=== PATIENT | male | born 1935 | race Caucasian/White ===

== ENCOUNTER 2016-09-23 02:54 | Inpatient (IN) | payer MEDICARE ==
[~2016-09-23] VITALS: Ht 177.8 cm; Wt 89.2 kg
[2016-09-23] VITALS (8 sets, daily range): BP systolic 152–194; BP diastolic 71–91
[~2016-09-23 02:54] MED LIST: AMLO5TAB4 PO; ASPI-515 PO; ATOR10TA PO; CAND4TAB PO; CARV12.52 PO; CHLO25TA PO; CLON-275 PO; LABE100T26 PO; SITA1TAB PO; TERA5CAP3 PO; TICA90TA PO
[2016-09-23] MEDS ORDERED: LABETALOL 5MG/ML, 20ML ONE (03:34)
[2016-09-23 03:57] LABS: HEMOGLOBIN 13.4 g/dL (13.7-18.0)
[2016-09-23] MEDS ORDERED: LABETALOL 5MG/ML, 20ML IVPush ONE (04:00)
[2016-09-23 04:14] LABS: BLOOD UREA NITROGEN 25 mg/dL (7-18)
[2016-09-23 04:19] LABS: ASPARTATE AMINO TRANSFERASE 22 U/L (15-37)
[2016-09-23 04:22] LABS: IS PT STATUS REG ER OR PRE ER? YES
[2016-09-23] MEDS ORDERED: ASPIRIN 81 MG TABLET CHEW ONE (04:29)
[2016-09-23] MEDS ORDERED: ASPIRIN 81 MG TABLET CHEW PO ONE (04:30)
[2016-09-23] MEDS: SODIUM CHLORIDE 0.9% 1,000 ML IV SCH ×2 (05:10→23:36)
[2016-09-23] MEDS ORDERED: ONDANSETRON 2MG/ML, 2ML IVP PRN (05:30)
[2016-09-23] MEDS ORDERED: POLYETHYLENE GLYCOL 17 GM PACKET PO PRN (05:30)
[2016-09-23] MEDS ORDERED: NITROGLYCERIN 0.4 MG BOTTLE (25 TABS) SL PRN (05:30)
[2016-09-23] MEDS ORDERED: LABETALOL 5MG/ML, 20ML IV PRN (05:30)
[2016-09-23] MEDS ORDERED: ACETAMINOPHEN 325 MG TABLET PO PRN (05:30)
[2016-09-23] MEDS ORDERED: DOCUSATE 100 MG CAPSULE PO PRN (05:30)
[2016-09-23] MEDS ORDERED: BISACODYL 10 MG SUPP PR PRN (05:30)
[2016-09-23] MEDS ORDERED: MORPHINE SULFATE 4 MG/ML, 1ML IVPush PRN (05:30)
[2016-09-23] MEDS ORDERED: ENOXAPARIN 80 MG/0.8 ML SQ SCH (05:30)
[2016-09-23] MEDS: INSULIN REGULAR 100 UNITS/ML, 3ML VIAL SQ-INSULIN SCH ×4 (07:00→21:00)
[2016-09-23] MEDS: ENALAPRILAT 1.25 MG/ML, 2ML IVPush PRN ×2 (07:06→12:42)
[2016-09-23] MEDS ORDERED: LABETALOL 100 MG TABLET PO SCH (08:00)
[2016-09-23] MEDS: ASPIRIN 81 MG TABLET EC PO SCH (08:49)
[2016-09-23] MEDS: AMLODIPINE 5 MG TABLET PO SCH (08:49)
[2016-09-23 10:46] LABS: IS PT STATUS REG ER OR PRE ER? NO
[2016-09-23] MEDS ORDERED: SODIUM CHLORIDE 0.9% 1,000 ML IV ONE (11:51)
[2016-09-23] MEDS ORDERED: FENTANYL PF 100 MCG/2ML ONE ×2 (13:23→15:04)
[2016-09-23] MEDS ORDERED: VERAPAMIL 2.5 MG/ML, 2ML ONE (13:23)
[2016-09-23] MEDS ORDERED: MIDAZOLAM 1 MG/ML, 5ML ONE ×2 (13:23→14:39)
[2016-09-23] MEDS ORDERED: BIVALIRUDIN 250 MG ONE (13:24)
[2016-09-23] MEDS ORDERED: TICAGRELOR 90 MG TABLET ONE (13:24)
[2016-09-23] MEDS ORDERED: LIDOCAINE 2%, 20ML ONE (13:24)
[2016-09-23] MEDS ORDERED: HEPARIN 1,000 UNITS/ML, 10ML ONE (13:24)
[2016-09-23] MEDS: SODIUM CHLORIDE 0.45% 1,000 ML IV SCH ×3 (16:35→23:36)
[2016-09-23] MEDS: LABETALOL 100 MG TABLET PO SCH (17:48)
[2016-09-23] MEDS: hydrALAzine 20 MG/ML, 1ML IV PRN (17:49)
[2016-09-23 18:43] LABS: IS PT STATUS REG ER OR PRE ER? NO
[2016-09-23] MEDS: ENOXAPARIN 100 MG/ML SQ SCH (21:00)
[2016-09-23] MEDS: ATORVASTATIN 40 MG TABLET PO SCH (22:35)
[2016-09-24 01:39] VITALS: BP 145/85
[2016-09-24 05:58] LABS: HEMOGLOBIN 12.6 g/dL (13.7-18.0)
[2016-09-24 06:13] LABS: BLOOD UREA NITROGEN 15 mg/dL (7-18)
[2016-09-24 06:56] VITALS: BP 188/77
[2016-09-24] MEDS: INSULIN REGULAR 100 UNITS/ML, 3ML VIAL SQ-INSULIN SCH ×4 (07:00→20:34)
[2016-09-24] MEDS: hydrALAzine 20 MG/ML, 1ML IV PRN (08:07)
[2016-09-24] MEDS: LABETALOL 100 MG TABLET PO SCH ×2 (08:10→17:55)
[2016-09-24] MEDS: ASPIRIN 81 MG TABLET EC PO SCH (08:10)
[2016-09-24] MEDS: AMLODIPINE 5 MG TABLET PO SCH (08:11)
[2016-09-24] MEDS: ENOXAPARIN 100 MG/ML SQ SCH ×2 (08:13→20:35)
[2016-09-24] MEDS ORDERED: CLOPIDOGREL 75 MG TABLET PO SCH (09:00)
[2016-09-24 09:11] VITALS: BP 124/72
[2016-09-24] MEDS: SODIUM CHLORIDE 0.9% 1,000 ML IV SCH (12:50)
[2016-09-24] MEDS: TICAGRELOR 90 MG TABLET PO SCH ×2 (13:15→20:34)
[2016-09-24 13:45] VITALS: BP 141/70
[2016-09-24] MEDS: ATORVASTATIN 40 MG TABLET PO SCH (20:34)
[2016-09-24 20:48] VITALS: BP 175/87
[2016-09-25 01:55] VITALS: BP 161/78
[2016-09-25 05:29] LABS: HEMOGLOBIN 12.6 g/dL (13.7-18.0)
[2016-09-25 06:55] VITALS: BP 185/92
[2016-09-25] MEDS: ASPIRIN 81 MG TABLET EC PO SCH (08:56)
[2016-09-25] MEDS: TICAGRELOR 90 MG TABLET PO SCH ×2 (08:56→23:34)
[2016-09-25] MEDS: AMLODIPINE 5 MG TABLET PO SCH (08:56)
[2016-09-25] MEDS: ENOXAPARIN 100 MG/ML SQ SCH ×2 (08:56→20:57)
[2016-09-25] MEDS: LABETALOL 100 MG TABLET PO SCH ×3 (08:56→23:34)
[2016-09-25] MEDS: INSULIN REGULAR 100 UNITS/ML, 3ML VIAL SQ-INSULIN SCH ×4 (08:56→21:25)
[2016-09-25 16:52] VITALS: BP 188/80
[2016-09-25] MEDS: ENALAPRILAT 1.25 MG/ML, 2ML IVPush PRN (17:37)
[2016-09-25 19:23] VITALS: BP 136/73
[2016-09-25] MEDS: ATORVASTATIN 40 MG TABLET PO SCH (21:00)
[2016-09-26 01:32] VITALS: BP 154/76
[2016-09-26 06:45] VITALS: BP 184/89
[2016-09-26] MEDS: TICAGRELOR 90 MG TABLET PO SCH ×2 (07:59→20:14)
[2016-09-26] MEDS: LABETALOL 100 MG TABLET PO SCH ×2 (07:59→17:00)
[2016-09-26] MEDS: ASPIRIN 81 MG TABLET EC PO SCH (07:59)
[2016-09-26] MEDS: AMLODIPINE 5 MG TABLET PO SCH (07:59)
[2016-09-26] MEDS: ENOXAPARIN 100 MG/ML SQ SCH (08:00)
[2016-09-26] MEDS: INSULIN REGULAR 100 UNITS/ML, 3ML VIAL SQ-INSULIN SCH ×4 (08:12→20:20)
[2016-09-26 09:45] VITALS: BP 113/70
[2016-09-26 14:18] VITALS: BP 132/69
[2016-09-26] MEDS ORDERED: ENOXAPARIN 80 MG/0.8 ML SQ SCH (20:00)
[2016-09-26 20:10] VITALS: BP 154/71
[2016-09-26] MEDS: ATORVASTATIN 40 MG TABLET PO SCH (20:14)
[2016-09-27 01:24] VITALS: BP 163/78
[2016-09-27] MEDS: LABETALOL 100 MG TABLET PO SCH ×2 (01:29→07:46)
[2016-09-27 05:18] VITALS: BP 138/84
[2016-09-27] MEDS: INSULIN REGULAR 100 UNITS/ML, 3ML VIAL SQ-INSULIN SCH ×2 (07:00→11:00)
[2016-09-27 07:39] VITALS: BP 131/83
[2016-09-27] MEDS: TICAGRELOR 90 MG TABLET PO SCH (07:46)
[2016-09-27] MEDS: ASPIRIN 81 MG TABLET EC PO SCH (07:46)
[2016-09-27] MEDS: AMLODIPINE 5 MG TABLET PO SCH (07:47)
[2016-09-27] MEDS ORDERED: APIXABAN 5 MG TABLET PO SCH (10:00)
[2016-09-27] MEDS ORDERED: AMLO5TAB2 PO (11:34)
[2016-09-27] MEDS ORDERED: ATOR40TA78 PO (11:34)
[2016-09-27] MEDS ORDERED: LABE100T3 PO (11:34)
[2016-09-27] MEDS ORDERED: APIX5TAB PO (11:34)
[2016-09-27] MEDS ORDERED: LABETALOL 100 MG TABLET PO SCH (21:00)
[2016-09-28] MEDS ORDERED: AMLODIPINE 5 MG TABLET PO SCH (09:00)
== END 2016-09-27 15:00 | disposition home or self-care (01) | DRG 280 ==
LOC: SUATTDRO 04:42 → ED 05:20 → EDIP 05:21 → 5SO 05:21 → DCLOUNGE 09-27 14:28
PROC: 4A023N7 Measurement of Cardiac Sampling and Pressure, Left Heart, Percutaneous Approach (ICD-10-PCS; principal; 2016-09-23)
PROC: B2111ZZ Fluoroscopy of Multiple Coronary Arteries using Low Osmolar Contrast (ICD-10-PCS; 2016-09-23)
PROC: B2151ZZ Fluoroscopy of Left Heart using Low Osmolar Contrast (ICD-10-PCS; 2016-09-23)
DX: I21.4 Non-ST elevation (NSTEMI) myocardial infarction (principal); N17.0 Acute kidney failure with tubular necrosis; D68.69 Other thrombophilia; Z95.5 Presence of coronary angioplasty implant and graft; I25.10 Atherosclerotic heart disease of native coronary artery without angina pectoris; I48.0 Paroxysmal atrial fibrillation; E11.65 Type 2 diabetes mellitus with hyperglycemia; E78.5 Hyperlipidemia, unspecified; I44.7 Left bundle-branch block, unspecified; I11.9 Hypertensive heart disease without heart failure; Z85.46 Personal history of malignant neoplasm of prostate; Z86.011 Personal history of benign neoplasm of the brain; Z87.891 Personal history of nicotine dependence; Z83.3 Family history of diabetes mellitus; I25.2 Old myocardial infarction; Z82.49 Family history of ischemic heart disease and other diseases of the circulatory system
CPT/HCPCS: 36415; 71010; 78452; 80048; 80053; 80061; 82040; 82962; 84484; 85025; 93005; 93306; 93458; 96374; C1760; C1769; C1894; J0583; J1644; J1650; J1815; J2250; J3010; J3490; A9502; C1887; C9898; J0360; J7030; Q9967

== ENCOUNTER → 2016-11-28 | Outpatient (CLI) | payer MEDICARE ==
[~2016-11-28] MED LIST changes: +AMLO5TAB2 PO; +APIX5TAB PO; +ATOR40TA78 PO; +LABE100T3 PO
[2016-11-28 13:09] LABS: ASPARTATE AMINO TRANSFERASE 18 U/L (15-37); BLOOD UREA NITROGEN 18 mg/dL (7-18)
== END | disposition home or self-care (01) ==
LOC: LAB 11:54
PROVIDERS: ATTEND Internal Medicine Cardiovascular Disease
DX: E78.4 Other hyperlipidemia (principal); I10 Essential (primary) hypertension; I25.10 Atherosclerotic heart disease of native coronary artery without angina pectoris; I35.1 Nonrheumatic aortic (valve) insufficiency; I47.1 Supraventricular tachycardia; R00.1 Bradycardia, unspecified
CPT/HCPCS: 36415; 80053; 80061; 83036; 85025

== ENCOUNTER → 2016-12-06 | Outpatient (CLI) | payer MEDICARE | END | disposition home or self-care (01) | LOC: CFH 14:04 | PROVIDERS: ATTEND Internal Medicine Cardiovascular Disease | DX: I08.3 Combined rheumatic disorders of mitral, aortic and tricuspid valves (principal); I37.1 Nonrheumatic pulmonary valve insufficiency; I51.7 Cardiomegaly | CPT/HCPCS: 93306 ==

== ENCOUNTER → 2016-12-07 | Outpatient (CLI) | payer MEDICARE ==
[~2016-12-07] MED LIST changes: +OMNIPAQUE 350 MG/ML, 100ML BOTTLE ONE
== END | disposition home or self-care (01) ==
LOC: RAD 10:40
PROVIDERS: ATTEND Nurse Practitioner Family
DX: I65.23 Occlusion and stenosis of bilateral carotid arteries (principal); I70.90 Unspecified atherosclerosis
CPT/HCPCS: 70498; Q9967

== ENCOUNTER → 2017-04-04 | Outpatient (CLI) | payer MEDICARE ==
[~2017-04-04] MED LIST changes: +GADOBUTROL 10 MMOL/10 ML PFS ONE; -OMNIPAQUE 350 MG/ML, 100ML BOTTLE ONE
== END | disposition home or self-care (01) ==
LOC: CFH 12:19
PROVIDERS: ATTEND Radiology Radiation Oncology
DX: D33.3 Benign neoplasm of cranial nerves (principal); I10 Essential (primary) hypertension; E11.9 Type 2 diabetes mellitus without complications
CPT/HCPCS: 70553; A9585

== ENCOUNTER → 2017-04-05 | Outpatient (CLI) | payer MEDICARE ==
[~2017-04-05] MED LIST changes: -GADOBUTROL 10 MMOL/10 ML PFS ONE
== END | disposition home or self-care (01) ==
LOC: ROC 07:34
PROVIDERS: ATTEND Radiology Radiation Oncology
DX: D33.3 Benign neoplasm of cranial nerves (principal); I48.91 Unspecified atrial fibrillation; E11.9 Type 2 diabetes mellitus without complications; E78.5 Hyperlipidemia, unspecified; I11.9 Hypertensive heart disease without heart failure; I25.2 Old myocardial infarction; Z79.82 Long term (current) use of aspirin
CPT/HCPCS: G0463

== ENCOUNTER → 2017-06-19 | Outpatient (CLI) | payer MEDICARE | END | disposition home or self-care (01) | LOC: CFH 13:32 | PROVIDERS: ATTEND Internal Medicine Cardiovascular Disease | DX: I08.3 Combined rheumatic disorders of mitral, aortic and tricuspid valves (principal); I11.0 Hypertensive heart disease with heart failure; E78.5 Hyperlipidemia, unspecified; I25.10 Atherosclerotic heart disease of native coronary artery without angina pectoris; I25.2 Old myocardial infarction | CPT/HCPCS: 93306 ==

== ENCOUNTER 2018-04-09 08:35 | Inpatient (IN) | payer MEDICARE ==
[~2018-04-09] VITALS: Ht 175.3 cm; Wt 86.0 kg
[~2018-04-09 08:35] MED LIST changes: -AMLO5TAB2 PO; +AMLO5TAB7 PO; -LABE100T3 PO; +LABE100T6 PO
[2018-04-09] MEDS ORDERED: ASPIRIN 81 MG TABLET CHEW PO ONE (09:30)
[2018-04-09] MEDS ORDERED: ASPIRIN 81 MG TABLET CHEW ONE (09:36)
[2018-04-09 09:48] LABS: BASOPHILS # (AUTO) 0.01 x10^3/uL (0-0.1); BASOPHILS % (AUTO) 0 % (0-1); EOSINOPHILS # (AUTO) 0.07 x10^3/uL (0-0.4); EOSINOPHILS % (AUTO) 1 % (1-7); LYMPHOCYTES # (AUTO) 0.69 x10^3/uL (1-3.4); LYMPHOCYTES % (AUTO) 9 % (22-44); MD NO; MEAN CORPUSCULAR HEMOGLOBIN 30.9 pg (27.5-34.5); MEAN CORPUSCULAR HGB CONC 33.3 g/dL (33.2-36.2); MEAN CORPUSCULAR VOLUME 92.7 fL (81-97); MEAN PLATELET VOLUME 9.7 fL (7.4-10.4); MONOCYTES # (AUTO) 0.39 x10^3/uL (0.2-0.8); MONOCYTES % (AUTO) 5 % (2-9); NEUTROPHILS # (AUTO) 6.88 x10^3/uL (1.8-6.8); NEUTROPHILS % (AUTO) 86 % (42-75); PLATELET COUNT 183 x10^3/uL (130-400); RED BLOOD COUNT 3.81 x10^6/uL (4.38-5.82); RED CELL DISTRIBUTION WIDTH 13.3 % (9.4-14.8)
[2018-04-09 09:55] LABS: ALBUMIN 3.2 g/dL (3.4-5.0); ANION GAP 9 mmol/L (5-15); CHLORIDE 104 mmol/L (98-107); CREATININE 0.97 mg/dL (0.7-1.3)
[2018-04-09] MEDS ORDERED: LABE100T6 PO (10:24)
[2018-04-09] MEDS ORDERED: FUROSEMIDE 40 MG/4 ML IV ONE (11:00)
[2018-04-09 11:20] VITALS: BP 170/98
[2018-04-09] MEDS ORDERED: NITR0.6T4 SL (12:50)
[2018-04-09] MEDS ORDERED: Nitroglycerin SL (12:50)
[2018-04-09] MEDS ORDERED: HYDR-3343 PO (12:50)
[2018-04-09 13:06] VITALS: BP 150/90
[2018-04-09] MEDS ORDERED: FLU VACCINE PER PHARMACY IM ONE (13:30)
[2018-04-09] MEDS ORDERED: ONDANSETRON 2MG/ML, 2ML IVPush PRN (13:30)
[2018-04-09] MEDS ORDERED: ENOXAPARIN 40 MG/0.4 ML SQ SCH (13:30)
[2018-04-09] MEDS ORDERED: ACETAMINOPHEN 325 MG TABLET PO PRN (13:30)
[2018-04-09] MEDS ORDERED: NITROGLYCERIN 0.4 MG BOTTLE (25 TABS) SL PRN (13:30)
[2018-04-09] MEDS ORDERED: TEMAZEPAM 15 MG CAPSULE PO PRN (13:30)
[2018-04-09] MEDS ORDERED: OXYcodone IR 5MG TABLET PO PRN (13:30)
[2018-04-09] MEDS ORDERED: morphine SULFATE 10 MG/ML, 1ML IVPush PRN (13:30)
[2018-04-09] MEDS ORDERED: ENALAPRILAT 1.25 MG/ML, 2ML IVPush PRN (13:30)
[2018-04-09 13:50] LABS: HEMOGLOBIN A1C 7.3 % (4.2-6.3)
[2018-04-09] MEDS: FUROSEMIDE 40 MG/4 ML IV SCH (16:46)
[2018-04-09] MEDS: INSULIN LISPRO 100 UNITS/ML, PEN SQ-INSULIN SCH ×2 (17:48→21:51)
[2018-04-09 20:24] VITALS: BP 153/69
[2018-04-09] MEDS ORDERED: metFORMIN 500 MG TABLET PO SCH (21:00)
[2018-04-09] MEDS ORDERED: SITAGLIPTIN 50MG TABLET PO SCH (21:00)
[2018-04-09] MEDS ORDERED: APIXABAN 5 MG TABLET PO SCH (21:00)
[2018-04-09] MEDS: ATORVASTATIN 40 MG TABLET PO SCH (21:45)
[2018-04-09] MEDS: LABETALOL 100 MG TABLET PO SCH (21:46)
[2018-04-10 02:23] VITALS: BP 148/77
[2018-04-10 05:24] LABS: ANION GAP 10 mmol/L (5-15); CALCIUM 8.5 mg/dL (8.5-10.1); CHLORIDE 104 mmol/L (98-107); CREATININE 1.09 mg/dL (0.7-1.3)
[2018-04-10] MEDS: ASPIRIN 81 MG TABLET EC PO SCH (06:14)
[2018-04-10] MEDS ORDERED: SODIUM CHLORIDE 0.9% 1,000 ML IV ONE (08:23)
[2018-04-10] MEDS: INSULIN LISPRO 100 UNITS/ML, PEN SQ-INSULIN SCH ×4 (08:30→20:04)
[2018-04-10] MEDS: POTASSIUM CHLORIDE 20 MEQ TAB.ER.PRT PO SCH (08:31)
[2018-04-10] MEDS: LABETALOL 100 MG TABLET PO SCH (08:32)
[2018-04-10] MEDS: FUROSEMIDE 40 MG/4 ML IV SCH (08:40)
[2018-04-10 08:49] VITALS: BP 165/93
[2018-04-10] MEDS ORDERED: FUROSEMIDE 40 MG TABLET PO SCH (09:00)
[2018-04-10 14:59] VITALS: BP 145/79
[2018-04-10 19:10] VITALS: BP 149/86
[2018-04-10] MEDS: ATORVASTATIN 40 MG TABLET PO SCH (20:04)
[2018-04-10] MEDS: LABETALOL 200 MG TABLET PO SCH (20:05)
[2018-04-11 00:28] VITALS: BP 154/88
[2018-04-11] MEDS ORDERED: SODIUM CHLORIDE 0.9% 1,000 ML IV ONE (06:00)
[2018-04-11] MEDS: ASPIRIN 81 MG TABLET EC PO SCH (06:14)
[2018-04-11 07:13] VITALS: BP 129/73
[2018-04-11] MEDS: INSULIN LISPRO 100 UNITS/ML, PEN SQ-INSULIN SCH ×4 (08:06→20:32)
[2018-04-11 08:32] VITALS: BP 149/79
[2018-04-11] MEDS: POTASSIUM CHLORIDE 20 MEQ TAB.ER.PRT PO SCH (08:35)
[2018-04-11] MEDS: LABETALOL 200 MG TABLET PO SCH ×2 (08:35→20:31)
[2018-04-11] MEDS ORDERED: FUROSEMIDE 40 MG/4 ML IV SCH (09:00)
[2018-04-11] MEDS ORDERED: TICAGRELOR 90 MG TABLET ONE (11:55)
[2018-04-11] MEDS ORDERED: FENTANYL PF 100 MCG/2ML ONE (11:55)
[2018-04-11] MEDS ORDERED: BIVALIRUDIN 250 MG ONE ×2 (11:55→13:26)
[2018-04-11] MEDS ORDERED: VERAPAMIL 2.5 MG/ML, 2ML ONE (11:55)
[2018-04-11] MEDS ORDERED: MIDAZOLAM 1 MG/ML, 5ML ONE (11:55)
[2018-04-11] MEDS ORDERED: HEPARIN 1,000 UNITS/ML, 10ML ONE (11:56)
[2018-04-11] MEDS ORDERED: NITROGLYCERIN 5 MG/ML, 10ML ONE (12:12)
[2018-04-11] MEDS ORDERED: BIVALIRUDIN 250 MG in DEXTROSE 5% 100 ML IV SCH (13:54)
[2018-04-11] MEDS ORDERED: CLOPIDOGREL 300 MG TABLET ONE (13:54)
[2018-04-11 14:42] VITALS: BP 123/78
[2018-04-11] MEDS ORDERED: SODIUM CHLORIDE 0.9% 1,000 ML IV SCH (15:00)
[2018-04-11 19:33] VITALS: BP 145/76
[2018-04-11 20:01] LABS: TROPONIN I 0.796 ng/mL (0.000-0.045)
[2018-04-11] MEDS: ATORVASTATIN 40 MG TABLET PO SCH (20:31)
[2018-04-12 01:12] VITALS: BP 120/72
[2018-04-12] MEDS: ASPIRIN 81 MG TABLET EC PO SCH (05:15)
[2018-04-12 05:36] LABS: ALBUMIN 2.8 g/dL (3.4-5.0); ANION GAP 11 mmol/L (5-15); CALCIUM 8.4 mg/dL (8.5-10.1); CHLORIDE 110 mmol/L (98-107)
[2018-04-12 05:38] LABS: CREATININE 1.14 mg/dL (0.7-1.3)
[2018-04-12 07:25] VITALS: BP 152/79
[2018-04-12] MEDS: FUROSEMIDE 40 MG TABLET PO SCH (08:03)
[2018-04-12] MEDS: POTASSIUM CHLORIDE 20 MEQ TAB.ER.PRT PO SCH (08:04)
[2018-04-12] MEDS: LABETALOL 200 MG TABLET PO SCH (08:04)
[2018-04-12] MEDS: CLOPIDOGREL 75 MG TABLET PO SCH (08:05)
[2018-04-12] MEDS: INSULIN LISPRO 100 UNITS/ML, PEN SQ-INSULIN SCH ×4 (08:07→21:33)
[2018-04-12] MEDS ORDERED: LISINOPRIL 5 MG TABLET PO SCH (10:00)
[2018-04-12 10:05] VITALS: BP 113/69
[2018-04-12] MEDS: APIXABAN 5 MG TABLET PO SCH ×2 (12:20→21:33)
[2018-04-12 13:17] VITALS: BP 102/63
[2018-04-12 17:40] VITALS: BP 146/74
[2018-04-12] MEDS: CARVEDILOL 12.5 MG TABLET PO SCH (17:42)
[2018-04-12 19:08] VITALS: BP 123/68
[2018-04-12] MEDS: ATORVASTATIN 40 MG TABLET PO SCH (21:33)
[2018-04-13] VITALS (9 sets, daily range): BP systolic 108–196; BP diastolic 77–119
[2018-04-13] MEDS: ASPIRIN 81 MG TABLET EC PO SCH (07:08)
[2018-04-13] MEDS: CARVEDILOL 12.5 MG TABLET PO SCH (07:08)
[2018-04-13] MEDS ORDERED: CARVEDILOL 12.5 MG TABLET PO ONE (08:00)
[2018-04-13] MEDS ORDERED: AMLODIPINE 5 MG TABLET PO ONE (08:00)
[2018-04-13] MEDS: FUROSEMIDE 40 MG TABLET PO SCH (08:13)
[2018-04-13] MEDS: APIXABAN 5 MG TABLET PO SCH ×2 (08:13→20:13)
[2018-04-13] MEDS: POTASSIUM CHLORIDE 20 MEQ TAB.ER.PRT PO SCH (08:14)
[2018-04-13] MEDS: CLOPIDOGREL 75 MG TABLET PO SCH (08:14)
[2018-04-13] MEDS: LISINOPRIL 10 MG TABLET PO SCH ×2 (08:15→20:14)
[2018-04-13] MEDS ORDERED: FUROSEMIDE 40 MG/4 ML IV ONE (09:00)
[2018-04-13] MEDS: INSULIN LISPRO 100 UNITS/ML, PEN SQ-INSULIN SCH ×4 (09:36→21:25)
[2018-04-13 10:56] LABS: ANION GAP 8 mmol/L (5-15); CALCIUM 8.2 mg/dL (8.5-10.1); CHLORIDE 104 mmol/L (98-107)
[2018-04-13] MEDS ORDERED: ZOLPIDEM 5MG TABLET PO PRN (12:00)
[2018-04-13] MEDS: CARVEDILOL 25 MG TABLET PO SCH (17:45)
[2018-04-13] MEDS: ATORVASTATIN 40 MG TABLET PO SCH (20:13)
[2018-04-14] VITALS (8 sets, daily range): BP systolic 119–195; BP diastolic 68–99
[2018-04-14] MEDS: CARVEDILOL 25 MG TABLET PO SCH ×2 (05:27→18:31)
[2018-04-14] MEDS: ASPIRIN 81 MG TABLET EC PO SCH (05:27)
[2018-04-14] MEDS: CLOPIDOGREL 75 MG TABLET PO SCH (08:16)
[2018-04-14] MEDS: FUROSEMIDE 40 MG TABLET PO SCH (08:16)
[2018-04-14] MEDS: LISINOPRIL 10 MG TABLET PO SCH ×2 (08:16→21:28)
[2018-04-14] MEDS: POTASSIUM CHLORIDE 20 MEQ TAB.ER.PRT PO SCH (08:16)
[2018-04-14] MEDS: APIXABAN 5 MG TABLET PO SCH ×2 (08:16→21:28)
[2018-04-14] MEDS: INSULIN LISPRO 100 UNITS/ML, PEN SQ-INSULIN SCH ×4 (08:41→21:30)
[2018-04-14] MEDS ORDERED: LISI-167 PO (13:26)
[2018-04-14] MEDS ORDERED: FURO40TA6 PO (13:26)
[2018-04-14] MEDS ORDERED: CARV25TA12 PO (13:26)
[2018-04-14] MEDS ORDERED: POTA20TA6 PO (13:26)
[2018-04-14] MEDS ORDERED: CLOP75TA PO (14:24)
[2018-04-14 19:14] LABS: ANION GAP 10 mmol/L (5-15); CALCIUM 8.5 mg/dL (8.5-10.1); CHLORIDE 99 mmol/L (98-107); CREATININE 1.28 mg/dL (0.7-1.3)
[2018-04-14] MEDS: ATORVASTATIN 40 MG TABLET PO SCH (21:28)
[2018-04-15 02:00] VITALS: BP 144/79
[2018-04-15 04:39] LABS: BASOPHILS # (AUTO) 0.04 x10^3/uL (0-0.1); BASOPHILS % (AUTO) 1 % (0-1); EOSINOPHILS # (AUTO) 0.31 x10^3/uL (0-0.4); EOSINOPHILS % (AUTO) 4 % (1-7); LYMPHOCYTES # (AUTO) 1.31 x10^3/uL (1-3.4); LYMPHOCYTES % (AUTO) 17 % (22-44); MD NO; MEAN CORPUSCULAR HEMOGLOBIN 30.9 pg (27.5-34.5); MEAN CORPUSCULAR HGB CONC 33.2 g/dL (33.2-36.2); MEAN CORPUSCULAR VOLUME 93.2 fL (81-97); MEAN PLATELET VOLUME 9.3 fL (7.4-10.4); MONOCYTES # (AUTO) 0.66 x10^3/uL (0.2-0.8); MONOCYTES % (AUTO) 9 % (2-9); NEUTROPHILS # (AUTO) 5.19 x10^3/uL (1.8-6.8); NEUTROPHILS % (AUTO) 69 % (42-75); PLATELET COUNT 211 x10^3/uL (130-400); RED BLOOD COUNT 3.88 x10^6/uL (4.38-5.82); RED CELL DISTRIBUTION WIDTH 13.6 % (9.4-14.8)
[2018-04-15 04:50] LABS: ANION GAP 8 mmol/L (5-15); CALCIUM 8.5 mg/dL (8.5-10.1); CHLORIDE 103 mmol/L (98-107)
[2018-04-15 04:51] LABS: CREATININE 1.12 mg/dL (0.7-1.3)
[2018-04-15 06:20] VITALS: BP 178/90
[2018-04-15] MEDS: ASPIRIN 81 MG TABLET EC PO SCH (06:25)
[2018-04-15] MEDS: CARVEDILOL 25 MG TABLET PO SCH (06:25)
[2018-04-15 07:25] VITALS: BP 155/88
[2018-04-15] MEDS: LISINOPRIL 10 MG TABLET PO SCH (08:14)
[2018-04-15] MEDS: POTASSIUM CHLORIDE 20 MEQ TAB.ER.PRT PO SCH (08:14)
[2018-04-15] MEDS: CLOPIDOGREL 75 MG TABLET PO SCH (08:15)
[2018-04-15] MEDS: APIXABAN 5 MG TABLET PO SCH (08:15)
[2018-04-15] MEDS: FUROSEMIDE 40 MG TABLET PO SCH (08:15)
[2018-04-15] MEDS: INSULIN LISPRO 100 UNITS/ML, PEN SQ-INSULIN SCH ×3 (08:15→16:35)
== END 2018-04-15 17:02 | disposition home or self-care (01) | DRG 246 ==
LOC: ED 10:13 → EDIP 10:34 → 5SO 11:15
PROVIDERS: ADMIT Internal Medicine; ATTEND Internal Medicine
PROC: 027036Z Dilation of Coronary Artery, One Artery with Three Drug-eluting Intraluminal Devices, Percutaneous Approach (ICD-10-PCS; principal; 2018-04-11)
PROC: 027034Z Dilation of Coronary Artery, One Artery with Drug-eluting Intraluminal Device, Percutaneous Approach (ICD-10-PCS; 2018-04-11)
PROC: 4A023N7 Measurement of Cardiac Sampling and Pressure, Left Heart, Percutaneous Approach (ICD-10-PCS; 2018-04-11)
PROC: B2111ZZ Fluoroscopy of Multiple Coronary Arteries using Low Osmolar Contrast (ICD-10-PCS; 2018-04-11)
PROC: B2151ZZ Fluoroscopy of Left Heart using Low Osmolar Contrast (ICD-10-PCS; 2018-04-11)
PROC: 4A033BC Measurement of Arterial Pressure, Coronary, Percutaneous Approach (ICD-10-PCS; 2018-04-11)
DX: I21.4 Non-ST elevation (NSTEMI) myocardial infarction (principal); I50.43 Acute on chronic combined systolic (congestive) and diastolic (congestive) heart failure; J96.01 Acute respiratory failure with hypoxia; I42.9 Cardiomyopathy, unspecified; I47.1 Supraventricular tachycardia; D68.69 Other thrombophilia; I25.10 Atherosclerotic heart disease of native coronary artery without angina pectoris; I48.0 Paroxysmal atrial fibrillation; D64.9 Anemia, unspecified; E11.65 Type 2 diabetes mellitus with hyperglycemia; E78.5 Hyperlipidemia, unspecified; F41.9 Anxiety disorder, unspecified; E11.649 Type 2 diabetes mellitus with hypoglycemia without coma; I11.0 Hypertensive heart disease with heart failure; G47.00 Insomnia, unspecified; I25.2 Old myocardial infarction; I25.5 Ischemic cardiomyopathy; I27.20 Pulmonary hypertension, unspecified; I08.3 Combined rheumatic disorders of mitral, aortic and tricuspid valves; Z79.01 Long term (current) use of anticoagulants; Z80.0 Family history of malignant neoplasm of digestive organs; Z85.46 Personal history of malignant neoplasm of prostate; Z86.011 Personal history of benign neoplasm of the brain; Z95.1 Presence of aortocoronary bypass graft; Z95.5 Presence of coronary angioplasty implant and graft
CPT/HCPCS: 36415; 71045; 80048; 82040; 82962; 83036; 83735; 83880; 84100; 84443; 84484; 85018; 85025; 90656; 93005; 93306; 93458; 99156; 99157; 99285; C1769; C1894; C9600; C9601; G0378; J0583; J1644; J1940; J2250; J3010; C1725; C1874; C1887; J1815; J7030; Q9967

== ENCOUNTER → 2018-04-18 | Outpatient (CLI) | payer MEDICARE ==
[~2018-04-18] MED LIST changes: +CARV25TA12 PO; +CLOP75TA PO; +FURO40TA6 PO; +HYDR-3343 PO; +LISI-167 PO; +NITR0.6T4 SL; +Nitroglycerin SL; +POTA20TA6 PO
[2018-04-18 11:22] LABS: ANION GAP 9 mmol/L (5-15); CALCIUM 9.1 mg/dL (8.5-10.1); CHLORIDE 103 mmol/L (98-107); CREATININE 1.42 mg/dL (0.7-1.3)
== END | disposition home or self-care (01) ==
LOC: CFH 09:15
PROVIDERS: ATTEND Nurse Practitioner Family
DX: I10 Essential (primary) hypertension (principal); I42.9 Cardiomyopathy, unspecified
CPT/HCPCS: 36415; 80048

== ENCOUNTER → 2018-05-08 | Outpatient (CLI) | payer MEDICARE ==
[~2018-05-08] MED LIST changes: +REGADENOSON 0.4 MG/5 ML SYRINGE ONE
== END | disposition home or self-care (01) ==
LOC: CFH 07:49
PROVIDERS: ATTEND Internal Medicine Cardiovascular Disease
DX: I08.3 Combined rheumatic disorders of mitral, aortic and tricuspid valves (principal); I25.10 Atherosclerotic heart disease of native coronary artery without angina pectoris; I10 Essential (primary) hypertension; I25.2 Old myocardial infarction; E11.9 Type 2 diabetes mellitus without complications; E78.5 Hyperlipidemia, unspecified
CPT/HCPCS: 93306; J2785

== ENCOUNTER → 2018-08-31 | Outpatient (CLI) | payer MEDICARE ==
[~2018-08-31] MED LIST changes: +AMLO-150 PO; -AMLO5TAB7 PO; -CAND4TAB PO; +CAND4TAB7 PO; -REGADENOSON 0.4 MG/5 ML SYRINGE ONE
== END | disposition home or self-care (01) ==
LOC: CVU 14:19
PROVIDERS: ATTEND Nurse Practitioner Family
DX: S15.099S Other specified injury of unspecified carotid artery, sequela (principal); I65.23 Occlusion and stenosis of bilateral carotid arteries; D36.10 Benign neoplasm of peripheral nerves and autonomic nervous system, unspecified; I25.2 Old myocardial infarction; I25.10 Atherosclerotic heart disease of native coronary artery without angina pectoris; I48.91 Unspecified atrial fibrillation; I11.0 Hypertensive heart disease with heart failure; I50.9 Heart failure, unspecified; E78.5 Hyperlipidemia, unspecified; X58.XXXS Exposure to other specified factors, sequela
CPT/HCPCS: 93880

== ENCOUNTER 2019-02-07 13:24 | Emergency (ER) | payer MEDICARE ==
[~2019-02-07] VITALS: Ht 175.3 cm; Wt 80.5 kg
--- NOTE | 2019-02-07 13:27 | NUR ---
PT IN RESTROOM IN LOBBY ACCORDING TO PT'S
[2019-02-07 13:34] VITALS: BP 138/76
--- NOTE | 2019-02-07 14:07 | NUR ---
ultrasound at bedside.
--- NOTE | 2019-02-07 14:10 | NUR ---
PT PRESENTING WITH SOB FOR 3 DAYS WHEN LYING FLAT AND WITH EXERTION. DENIES CP
[2019-02-07 15:01] LABS: ALBUMIN 3.6 g/dL (3.4-5.0); ANION GAP 7 mmol/L (5-15); CALCIUM 8.8 mg/dL (8.5-10.1); CHLORIDE 107 mmol/L (98-107)
[2019-02-07 15:03] LABS: BASOPHILS # (AUTO) 0.03 x10^3/uL (0-0.1); BASOPHILS % (AUTO) 1 % (0-1); EOSINOPHILS # (AUTO) 0.35 x10^3/uL (0-0.4); EOSINOPHILS % (AUTO) 6 % (1-7); LYMPHOCYTES # (AUTO) 1.01 x10^3/uL (1-3.4); LYMPHOCYTES % (AUTO) 16 % (22-44); MD NO; MEAN CORPUSCULAR HEMOGLOBIN 29.8 pg (27.5-34.5); MEAN CORPUSCULAR HGB CONC 31.7 g/dL (33.2-36.2); MEAN CORPUSCULAR VOLUME 93.8 fL (81-97); MEAN PLATELET VOLUME 9.6 fL (7.4-10.4); MONOCYTES # (AUTO) 0.49 x10^3/uL (0.2-0.8); MONOCYTES % (AUTO) 8 % (2-9); NEUTROPHILS # (AUTO) 4.43 x10^3/uL (1.8-6.8); NEUTROPHILS % (AUTO) 70 % (42-75); PLATELET COUNT 171 x10^3/uL (130-400); RED BLOOD COUNT 4.25 x10^6/uL (4.38-5.82)
[2019-02-07 15:06] LABS: ALANINE AMINOTRANSFERASE 82 U/L (12-78); ALKALINE PHOSPHATASE 121 U/L (45-117); BILIRUBIN,TOTAL 0.8 mg/dL (0.2-1.0); CREATININE 1.34 mg/dL (0.7-1.3); TOTAL PROTEIN 6.8 g/dL (6.4-8.2)
[2019-04-09] MEDS ORDERED: FURO40TA6 PO (09:43)
[2019-04-09] MEDS ORDERED: POTA20TA6 PO (09:43)
[2019-04-09] MEDS ORDERED: CARV3.122 PO (10:18)
== END 2019-02-07 15:52 | disposition home or self-care (01) ==
LOC: ED 15:42
DX: I50.9 Heart failure, unspecified (principal); I25.10 Atherosclerotic heart disease of native coronary artery without angina pectoris; I25.2 Old myocardial infarction; I11.0 Hypertensive heart disease with heart failure; E78.5 Hyperlipidemia, unspecified; Z85.46 Personal history of malignant neoplasm of prostate
CPT/HCPCS: 36415; 71045; 80053; 83880; 84443; 84484; 85025; 93005; 99284

== ENCOUNTER 2019-03-07 17:09 | Emergency (ER) | payer MEDICARE ==
[~2019-03-07] VITALS: Ht 175.3 cm; Wt 81.5 kg
--- NOTE | 2019-03-07 17:35 | NUR ---
YARD INSPECTOR: PT TO ROOM FROM [facility]A MENEZES
[2019-03-07 18:37] LABS: BASOPHILS # (AUTO) 0.03 x10^3/uL (0-0.1); BASOPHILS % (AUTO) 0 % (0-1); EOSINOPHILS # (AUTO) 0.27 x10^3/uL (0-0.4); EOSINOPHILS % (AUTO) 4 % (1-7); LYMPHOCYTES # (AUTO) 1.01 x10^3/uL (1-3.4); LYMPHOCYTES % (AUTO) 14 % (22-44); MD NO; MEAN CORPUSCULAR HGB CONC 32.2 g/dL (33.2-36.2); MEAN CORPUSCULAR VOLUME 93.1 fL (81-97); MEAN PLATELET VOLUME 9.1 fL (7.4-10.4); MONOCYTES # (AUTO) 0.48 x10^3/uL (0.2-0.8); MONOCYTES % (AUTO) 7 % (2-9); NEUTROPHILS # (AUTO) 5.48 x10^3/uL (1.8-6.8); NEUTROPHILS % (AUTO) 75 % (42-75); PLATELET COUNT 179 x10^3/uL (130-400); RED CELL DISTRIBUTION WIDTH 16.4 % (9.4-14.8)
[2019-03-07 18:47] LABS: ALBUMIN 3.7 g/dL (3.4-5.0); ANION GAP 8 mmol/L (5-15); CALCIUM 8.5 mg/dL (8.5-10.1); CHLORIDE 101 mmol/L (98-107)
[2019-03-07 18:53] LABS: ALANINE AMINOTRANSFERASE 93 U/L (12-78); ALKALINE PHOSPHATASE 136 U/L (45-117); BILIRUBIN,TOTAL 1.1 mg/dL (0.2-1.0); CREATININE 1.26 mg/dL (0.7-1.3); TOTAL PROTEIN 6.6 g/dL (6.4-8.2); TROPONIN I < 0.015 ng/mL (0.000-0.045)
--- NOTE | 2019-03-07 19:02 | NUR ---
PT HAS USED THE RESTROOM MULTIPLE TIMES. STEADY GAIT. STEPHANIE. COURTNEYILALIT AT BEDSIDE. PT TALKING WITH FULL SENTENCE TO FAMILY.
--- NOTE | 2019-03-07 19:34 | NUR ---
PT SITTING UP IN BED TALKING TO .
[2019-03-07 19:46] VITALS: BP 160/80
[2019-04-09] MEDS ORDERED: POTA20TA6 PO (09:43)
[2019-04-09] MEDS ORDERED: FURO40TA6 PO (09:43)
[2019-04-09] MEDS ORDERED: CARV3.122 PO (10:18)
== END 2019-03-07 19:48 | disposition home or self-care (01) ==
LOC: ED 19:45
DX: I11.0 Hypertensive heart disease with heart failure (principal); I50.9 Heart failure, unspecified; I25.10 Atherosclerotic heart disease of native coronary artery without angina pectoris; I25.2 Old myocardial infarction; E78.5 Hyperlipidemia, unspecified; Z85.46 Personal history of malignant neoplasm of prostate
CPT/HCPCS: 36415; 71045; 80053; 83735; 83880; 84484; 85025; 93005; 99284

== ENCOUNTER → 2019-05-31 | Outpatient (CLI) | payer MEDICARE ==
[~2019-05-31] MED LIST changes: +CARV3.122 PO
== END | disposition home or self-care (01) ==
LOC: CFH 10:05
PROVIDERS: ATTEND Internal Medicine Cardiovascular Disease
DX: I08.3 Combined rheumatic disorders of mitral, aortic and tricuspid valves (principal); I10 Essential (primary) hypertension; E78.5 Hyperlipidemia, unspecified; E11.9 Type 2 diabetes mellitus without complications; Z85.46 Personal history of malignant neoplasm of prostate
CPT/HCPCS: 93306

== ENCOUNTER → 2019-06-25 | Outpatient (CLI) | payer MEDICARE ==
[~2019-06-25] MED LIST changes: +CARV6.2512 PO; +FURO20TA3 PO; +SPIR25TA PO
== END | disposition home or self-care (01) ==
LOC: WOUND 12:57
PROVIDERS: ATTEND Nurse Practitioner Family
DX: I87.333 Chronic venous hypertension (idiopathic) with ulcer and inflammation of bilateral lower extremity (principal); L97.822 Non-pressure chronic ulcer of other part of left lower leg with fat layer exposed; L97.812 Non-pressure chronic ulcer of other part of right lower leg with fat layer exposed; I11.0 Hypertensive heart disease with heart failure; I50.9 Heart failure, unspecified; I25.10 Atherosclerotic heart disease of native coronary artery without angina pectoris; I25.2 Old myocardial infarction
CPT/HCPCS: 97597; 97598; G0463

== ENCOUNTER 2019-06-28 10:44 | Outpatient (CLI) | payer MEDICARE | END 2019-06-28 23:59 | disposition home or self-care (01) | LOC: CFH 10:44 | PROVIDERS: ATTEND Internal Medicine Cardiovascular Disease | DX: J18.1 Lobar pneumonia, unspecified organism (principal) | CPT/HCPCS: 71046 ==

== ENCOUNTER 2019-10-16 12:41 | Outpatient (CLI) | payer MEDICARE | END 2019-10-16 23:59 | disposition home or self-care (01) | LOC: CFH 12:41 | PROVIDERS: ATTEND Internal Medicine Cardiovascular Disease | DX: I08.8 Other rheumatic multiple valve diseases (principal) | CPT/HCPCS: 93306 ==

== ENCOUNTER → 2019-11-11 | Outpatient (CLI) | payer MEDICARE ==
[~2019-11-11] MED LIST changes: +ADENOSINE 6 MG/2 ML ONE; +DOBUTAMINE/D5W PMX 250 ML ONE
== END | disposition home or self-care (01) ==
LOC: CARD 10:12
PROVIDERS: ATTEND Internal Medicine Cardiovascular Disease
DX: I35.1 Nonrheumatic aortic (valve) insufficiency (principal); I42.9 Cardiomyopathy, unspecified; I48.91 Unspecified atrial fibrillation
CPT/HCPCS: 93017; 93350; J0153; J1250

== ENCOUNTER 2019-11-28 09:54 | Outpatient (CLI) | payer MEDICARE ==
[~2019-11-28 09:54] MED LIST changes: -ADENOSINE 6 MG/2 ML ONE; -DOBUTAMINE/D5W PMX 250 ML ONE
[2019-11-28] MEDS ORDERED: OMNIPAQUE 350 MG/ML, 100ML BOTTLE ONE (13:00)
[2019-12-29] MEDS ORDERED: OMNIPAQUE 350 MG/ML, 100ML BOTTLE ONE (13:00)
== END 2019-11-28 23:59 | disposition home or self-care (01) ==
LOC: CVU 09:54 → RAD 23:59
PROVIDERS: ATTEND Internal Medicine Cardiovascular Disease
DX: Z01.810 Encounter for preprocedural cardiovascular examination (principal); I65.23 Occlusion and stenosis of bilateral carotid arteries; I35.0 Nonrheumatic aortic (valve) stenosis; R06.02 Shortness of breath; K57.30 Diverticulosis of large intestine without perforation or abscess without bleeding; M47.816 Spondylosis without myelopathy or radiculopathy, lumbar region; I25.10 Atherosclerotic heart disease of native coronary artery without angina pectoris; Q25.46 Tortuous aortic arch
CPT/HCPCS: 71275; 74174; 93880; Q9967

== ENCOUNTER 2019-12-17 05:59 | Inpatient (IN) | payer MEDICARE ==
[~2019-12-17] VITALS: Ht 175.3 cm; Wt 72.0 kg
[2019-12-17] MEDS ORDERED: SODIUM CHLORIDE 0.9% 1,000 ML IV ONE (06:23)
[2019-12-17 06:41] VITALS: BP 122/78
[2019-12-17] MEDS ORDERED: SPIR25TA5 PO (06:53)
[2019-12-17] MEDS ORDERED: SITA1TAB PO (06:53)
[2019-12-17] MEDS ORDERED: CARV3.1212 PO (06:53)
[2019-12-17] MEDS ORDERED: FURO20TA3 PO (06:53)
[2019-12-17] MEDS ORDERED: FENTANYL PF 250 MCG/5ML ONE (07:34)
[2019-12-17 07:38] LABS: BASOPHILS # (AUTO) 0.03 x10^3/uL (0-0.1); BASOPHILS % (AUTO) 1 % (0-1); EOSINOPHILS # (AUTO) 0.35 x10^3/uL (0-0.4); EOSINOPHILS % (AUTO) 6 % (1-7); LYMPHOCYTES # (AUTO) 0.82 x10^3/uL (1-3.4); LYMPHOCYTES % (AUTO) 15 % (22-44); MD NO; MEAN CORPUSCULAR HEMOGLOBIN 27.6 pg (27.5-34.5); MEAN CORPUSCULAR HGB CONC 32.4 g/dL (33.2-36.2); MEAN CORPUSCULAR VOLUME 85.2 fL (81-97); MEAN PLATELET VOLUME 9.1 fL (7.4-10.4); MONOCYTES # (AUTO) 0.52 x10^3/uL (0.2-0.8); MONOCYTES % (AUTO) 10 % (2-9); NEUTROPHILS % (AUTO) 68 % (42-75); PLATELET COUNT 182 x10^3/uL (130-400); RED BLOOD COUNT 4.04 x10^6/uL (4.38-5.82); RED CELL DISTRIBUTION WIDTH 19.5 % (9.4-14.8)
[2019-12-17 07:47] LABS: ALANINE AMINOTRANSFERASE 20 U/L (12-78); ALBUMIN 3.2 g/dL (3.4-5.0); ANION GAP 11 mmol/L (5-15); CALCIUM 8.9 mg/dL (8.5-10.1); CHLORIDE 104 mmol/L (98-107); CREATININE 1.03 mg/dL (0.7-1.3); INTERNATIONAL NORMALIZED RATIO 1.07 (0.93-1.1); PROTHROMBIN TIME 11.3 Seconds (9.6-11.5)
[2019-12-17 07:49] LABS: ALKALINE PHOSPHATASE 137 U/L (45-117); BILIRUBIN,TOTAL 1.1 mg/dL (0.2-1.0); TOTAL PROTEIN 6.9 g/dL (6.4-8.2)
[2019-12-17] MEDS ORDERED: CEFAZOLIN 1,000 MG ONE (07:49)
[2019-12-17] MEDS ORDERED: PROTAMINE SULFATE 10 MG/ML, 5ML ONE ×2 (07:57→08:33)
[2019-12-17] MEDS ORDERED: SUCCINYLCHOLINE 20 MG/ML, 10ML ONE (08:12)
[2019-12-17] MEDS ORDERED: PROPOFOL 10 MG/ML, 20ML ONE ×4 (08:12→08:14)
[2019-12-17] MEDS ORDERED: ROCURONIUM 10MG/ML,5ML ONE (08:17)
[2019-12-17] MEDS ORDERED: ONDANSETRON 2MG/ML, 2ML ONE (08:21)
[2019-12-17] MEDS ORDERED: DEXTROSE 50%, 50ML SYRINGE IVPush PRN (09:00)
[2019-12-17] MEDS: SODIUM CHLORIDE FLUSH 10ML SYR IVF SCH ×2 (09:00→20:17)
[2019-12-17] MEDS: SPIRONOLACTONE 25 MG TABLET PO SCH (09:00)
[2019-12-17] MEDS ORDERED: CARVEDILOL 3.125 MG TABLET PO PRN (09:00)
[2019-12-17] MEDS ORDERED: hydrALAzine 20 MG/ML, 1ML IVPush PRN (09:00)
[2019-12-17] MEDS ORDERED: ACETAMINOPHEN 325 MG TABLET PO PRN (09:00)
[2019-12-17] MEDS ORDERED: GLUCAGON 1 MG IM PRN (09:00)
[2019-12-17] MEDS ORDERED: LABETALOL 20 MG/4 ML IVPush PRN (09:00)
[2019-12-17] MEDS ORDERED: TEMPLATE NON-FORMULARY MED. (Sitagliptin Phos/Metformin Hcl** (Janumet 50-500 Mg Tablet**) PO SCH (09:00)
[2019-12-17] MEDS: POTASSIUM CHLORIDE 20 MEQ TAB.ER.PRT PO SCH ×2 (09:00→20:16)
[2019-12-17] MEDS ORDERED: DEXTROSE 4 GM TAB.CHEW PO PRN (09:00)
[2019-12-17] MEDS ORDERED: APIXABAN 5 MG TABLET ONE (09:43)
[2019-12-17] MEDS: APIXABAN 5 MG TABLET PO SCH ×2 (09:45→20:17)
[2019-12-17 10:29] VITALS: BP 156/99
[2019-12-17] MEDS ORDERED: FUROSEMIDE 40 MG TABLET PO PRN (12:00)
[2019-12-17 12:37] VITALS: BP 155/89
[2019-12-17] MEDS ORDERED: NITROGLYCERIN 0.4 MG BOTTLE (25 TABS) SL PRN (13:00)
[2019-12-17 19:31] VITALS: BP 161/82
[2019-12-17 20:08] VITALS: BP 128/79
[2019-12-17] MEDS: METFORMIN HCL HOMEMEDPO SCH (20:17)
[2019-12-17] MEDS: SITAGLIPTIN PHOS HOMEMEDPO SCH (20:17)
[2019-12-18 01:24] VITALS: BP 126/83
[2019-12-18 05:23] LABS: BASOPHILS # (AUTO) 0.05 x10^3/uL (0-0.1); BASOPHILS % (AUTO) 1 % (0-1); EOSINOPHILS # (AUTO) 0.33 x10^3/uL (0-0.4); EOSINOPHILS % (AUTO) 5 % (1-7); LYMPHOCYTES % (AUTO) 13 % (22-44); MD NO; MEAN CORPUSCULAR HEMOGLOBIN 26.8 pg (27.5-34.5); MEAN CORPUSCULAR HGB CONC 31.7 g/dL (33.2-36.2); MEAN CORPUSCULAR VOLUME 84.4 fL (81-97); MEAN PLATELET VOLUME 9.2 fL (7.4-10.4); MONOCYTES # (AUTO) 0.64 x10^3/uL (0.2-0.8); MONOCYTES % (AUTO) 10 % (2-9); NEUTROPHILS # (AUTO) 4.39 x10^3/uL (1.8-6.8); NEUTROPHILS % (AUTO) 71 % (42-75); PLATELET COUNT 148 x10^3/uL (130-400); RED CELL DISTRIBUTION WIDTH 19.5 % (9.4-14.8)
[2019-12-18 05:34] LABS: ANION GAP 8 mmol/L (5-15); CALCIUM 8.5 mg/dL (8.5-10.1); CHLORIDE 106 mmol/L (98-107); CREATININE 1.02 mg/dL (0.7-1.3)
[2019-12-18 07:30] VITALS: BP 126/88
[2019-12-18] MEDS: APIXABAN 5 MG TABLET PO SCH (07:59)
[2019-12-18] MEDS: POTASSIUM CHLORIDE 20 MEQ TAB.ER.PRT PO SCH ×2 (07:59→08:02)
[2019-12-18] MEDS: SPIRONOLACTONE 25 MG TABLET PO SCH (07:59)
[2019-12-18] MEDS: SITAGLIPTIN PHOS HOMEMEDPO SCH (08:00)
[2019-12-18] MEDS: SODIUM CHLORIDE FLUSH 10ML SYR IVF SCH (08:00)
[2019-12-18] MEDS: METFORMIN HCL HOMEMEDPO SCH (08:00)
== END 2019-12-18 12:55 | disposition home or self-care (01) | DRG 266 ==
LOC: ORIP 05:59 → 5SO 11:34 → DCLOUNGE 12-18 12:45
PROVIDERS: ADMIT Internal Medicine Cardiovascular Disease; ATTEND Internal Medicine Cardiovascular Disease
PROC: B246ZZ4 Ultrasonography of Right and Left Heart, Transesophageal (ICD-10-PCS; 2019-12-17)
PROC: B3101ZZ Fluoroscopy of Thoracic Aorta using Low Osmolar Contrast (ICD-10-PCS; 2019-12-17)
PROC: 02RF38Z Replacement of Aortic Valve with Zooplastic Tissue, Percutaneous Approach (ICD-10-PCS; principal; 2019-12-17 08:00)
DX: I35.0 Nonrheumatic aortic (valve) stenosis (principal); Z00.6 Encounter for examination for normal comparison and control in clinical research program; I50.43 Acute on chronic combined systolic (congestive) and diastolic (congestive) heart failure; D68.69 Other thrombophilia; I42.9 Cardiomyopathy, unspecified; I48.0 Paroxysmal atrial fibrillation; I44.7 Left bundle-branch block, unspecified; I27.20 Pulmonary hypertension, unspecified; I25.10 Atherosclerotic heart disease of native coronary artery without angina pectoris; D64.9 Anemia, unspecified; E11.9 Type 2 diabetes mellitus without complications; E88.09 Other disorders of plasma-protein metabolism, not elsewhere classified; I11.0 Hypertensive heart disease with heart failure
CPT/HCPCS: 33361; 36415; 76937; 80048; 80053; 85025; 85347; 85610; 85730; 86850; 86900; 86923; 87635; 93005; 93306; 93312; 93321; 93325; 93355; C1760; C1769; C1894; G0378; J0690; J2405; J2704; J2720; J3010; J0330; Q9967; U0001-CS

== ENCOUNTER 2020-01-13 17:59 | Emergency (ER) | payer MEDICARE ==
[~2020-01-13] VITALS: Ht 175.3 cm; Wt 73.0 kg
[~2020-01-13 17:59] MED LIST changes: +CARV3.1212 PO; +SPIR25TA5 PO
--- NOTE | 2020-01-13 18:24 | NUR ---
BIB [facility] FROM HOME FOR INCREASED TIREDNESS SINCE December, WHEN PT HAD TRANSAORTIC VALVE REPLACEMENT. PT SLEEPS MUCH 20 HOURS A DAY. DENIES PAIN OR SOB AT THIS TIME. NO O2 AT HOME. USES CANE WHEN OUTSIDE OF HOME, OTHERWISE DENIES ASSISTIVE DEVICES.
--- NOTE | 2020-01-13 18:31 | NUR ---
REPORT TO MARIAM MOHAMUD.
[2020-01-13] MEDS ORDERED: SODIUM CHLORIDE FLUSH 10ML SYR IVF ONE (19:00)
[2020-01-13 19:07] LABS: ALANINE AMINOTRANSFERASE 26 U/L (12-78); ALBUMIN 3.1 g/dL (3.4-5.0); ANION GAP 7 mmol/L (5-15); CALCIUM 9.1 mg/dL (8.5-10.1); CHLORIDE 105 mmol/L (98-107); CREATININE 1.22 mg/dL (0.7-1.3)
[2020-01-13 19:11] LABS: ALKALINE PHOSPHATASE 172 U/L (45-117); BILIRUBIN,TOTAL 1.4 mg/dL (0.2-1.0); TOTAL PROTEIN 7.2 g/dL (6.4-8.2); TROPONIN I < 0.015 ng/mL (0.000-0.045)
[2020-01-13 19:18] VITALS: BP 129/81
[2020-01-13 19:23] LABS: BASOPHILS # (AUTO) 0.03 x10^3/uL (0-0.1); BASOPHILS % (AUTO) 1 % (0-1); EOSINOPHILS # (AUTO) 0.37 x10^3/uL (0-0.4); EOSINOPHILS % (AUTO) 6 % (1-7); LYMPHOCYTES # (AUTO) 0.96 x10^3/uL (1-3.4); LYMPHOCYTES % (AUTO) 15 % (22-44); MD NO; MEAN CORPUSCULAR HEMOGLOBIN 26.7 pg (27.5-34.5); MEAN CORPUSCULAR HGB CONC 31.1 g/dL (33.2-36.2); MEAN CORPUSCULAR VOLUME 85.8 fL (81-97); MEAN PLATELET VOLUME 8.9 fL (7.4-10.4); MONOCYTES # (AUTO) 0.55 x10^3/uL (0.2-0.8); MONOCYTES % (AUTO) 9 % (2-9); NEUTROPHILS % (AUTO) 70 % (42-75); PLATELET COUNT 184 x10^3/uL (130-400); RED BLOOD COUNT 4.27 x10^6/uL (4.38-5.82); RED CELL DISTRIBUTION WIDTH 20.6 % (9.4-14.8)
[2020-01-13 20:27] LABS: MICROSCOPIC INDICATED
== END 2020-01-13 20:45 | disposition home or self-care (01) ==
LOC: ED 20:15
DX: R53.1 Weakness (principal); R05 Cough; R53.83 Other fatigue; R07.9 Chest pain, unspecified; I48.91 Unspecified atrial fibrillation; I11.0 Hypertensive heart disease with heart failure; I25.2 Old myocardial infarction; E11.9 Type 2 diabetes mellitus without complications; I25.10 Atherosclerotic heart disease of native coronary artery without angina pectoris; I50.9 Heart failure, unspecified; Z85.46 Personal history of malignant neoplasm of prostate; Z95.4 Presence of other heart-valve replacement
CPT/HCPCS: 36415; 71045; 80053; 81001; 84484; 85025; 93005; 99285

== ENCOUNTER → 2020-01-16 | Outpatient (CLI) | payer MEDICARE | END | disposition home or self-care (01) | LOC: CVU 09:35 | PROVIDERS: ATTEND Internal Medicine Cardiovascular Disease | DX: I08.8 Other rheumatic multiple valve diseases (principal); I11.9 Hypertensive heart disease without heart failure; E78.5 Hyperlipidemia, unspecified; Z95.4 Presence of other heart-valve replacement | CPT/HCPCS: 93306 ==

== ENCOUNTER 2020-05-01 18:39 | Inpatient (IN) | payer MEDICARE ==
[~2020-05-01] VITALS: Ht 175.3 cm; Wt 68.7 kg
[2020-05-01] MEDS ORDERED: SODIUM CHLORIDE FLUSH 10ML SYR IVF ONE (19:00)
[2020-05-01 19:30] LABS: BASOPHILS % (AUTO) 1 % (0-1); EOSINOPHILS % (AUTO) 2 % (1-7); LYMPHOCYTES % (AUTO) 13 % (22-44); MEAN CORPUSCULAR HEMOGLOBIN 27.4 pg (27.5-34.5); MEAN CORPUSCULAR HGB CONC 32.4 g/dL (33.2-36.2); MEAN PLATELET VOLUME 8.1 fL (7.4-10.4); MONOCYTES % (AUTO) 9 % (2-9); NEUTROPHILS % (AUTO) 75 % (42-75); PLATELET COUNT 280 x10^3/uL (130-400); RED BLOOD COUNT 5.01 x10^6/uL (4.38-5.82); RED CELL DISTRIBUTION WIDTH 19.6 % (9.4-14.8)
[2020-05-01 19:31] LABS: MD NO
[2020-05-01 19:38] LABS: ALANINE AMINOTRANSFERASE 19 U/L (12-78); ALBUMIN 3.1 g/dL (3.4-5.0); ANION GAP 9 mmol/L (5-15); CALCIUM 9.1 mg/dL (8.5-10.1); CHLORIDE 90 mmol/L (98-107); CREATININE 1.14 mg/dL (0.7-1.3)
[2020-05-01 19:42] LABS: ALKALINE PHOSPHATASE 199 U/L (45-117); BILIRUBIN,TOTAL 1.4 mg/dL (0.2-1.0); TOTAL PROTEIN 7.8 g/dL (6.4-8.2); TROPONIN I 0.037 ng/mL (0.000-0.045)
--- NOTE | 2020-05-01 20:30 | NUR ---
EQUIP MAINT ENG: PT WALKED BACK FROM THE LOBBY TO ROOM AT THIS TIME.
[2020-05-01] MEDS ORDERED: SODIUM CHLORIDE 0.9% 1,000 ML IV ONE (21:00)
[2020-05-01] MEDS ORDERED: LIDOCAINE-MPF 1%, 5ML ONE (21:19)
--- NOTE | 2020-05-01 21:53 | NUR ---
PT RETURN FROM RADIOLOGY AT THIS TIME.
--- NOTE | 2020-05-01 21:57 | NUR ---
RADIOLOGY NOTES THAT REMOVED 1350ML
[2020-05-01] MEDS ORDERED: CARVEDILOL 3.125 MG TABLET PO PRN (23:30)
[2020-05-01] MEDS ORDERED: MAGNESIUM SULFATE PMX 2GM/50ML 50 ML IV ONE (23:30)
[2020-05-01] MEDS ORDERED: ENALAPRILAT 1.25 MG/ML, 2ML IVPush PRN (23:30)
[2020-05-01] MEDS ORDERED: MELATONIN 5 MG TABLET PO PRN (23:30)
[2020-05-01] MEDS ORDERED: ACETAMINOPHEN 325 MG TABLET PO PRN (23:30)
[2020-05-01] MEDS ORDERED: NITROGLYCERIN 0.4 MG BOTTLE (25 TABS) SL PRN (23:30)
[2020-05-01] MEDS ORDERED: ONDANSETRON ODT 4 MG PO PRN (23:30)
[2020-05-01] MEDS: APIXABAN 5 MG TABLET PO SCH (23:30)
[2020-05-01] MEDS ORDERED: TEMPLATE NON-FORMULARY MED. (Sitagliptin Phos/Metformin Hcl** (Janumet 50-500 Mg Tablet**) PO SCH (23:30)
[2020-05-02] MEDS ORDERED: APIXABAN 5 MG TABLET ONE ×2 (00:18→09:10)
[2020-05-02] MEDS ORDERED: MAGNESIUM SULFATE PMX 2GM/50ML 50 ML ONE ×2 (00:18→00:19)
--- NOTE | 2020-05-02 01:11 | NUR ---
PT RESTING IN HOSPITAL BED, VSS, PT HAS NO WANTS OR NEEDS AT THIS TIME
--- NOTE | 2020-05-02 03:43 | NUR ---
PT RESTING IN HOSPITAL BED, VSS, PT HAS NO WANTS OR NEEDS AT THIS TIME
--- NOTE | 2020-05-02 04:58 | NUR ---
PT report from Joshua doan. This rn to assume care of pt. Monitoring remains intact. No needs from pt. [id number].
[2020-05-02 05:50] LABS: BASOPHILS % (AUTO) 1 % (0-1); EOSINOPHILS % (AUTO) 3 % (1-7); LYMPHOCYTES % (AUTO) 9 % (22-44); MEAN CORPUSCULAR HEMOGLOBIN 27.1 pg (27.5-34.5); MEAN CORPUSCULAR HGB CONC 32.6 g/dL (33.2-36.2); MEAN PLATELET VOLUME 8.1 fL (7.4-10.4); MONOCYTES % (AUTO) 10 % (2-9); NEUTROPHILS % (AUTO) 77 % (42-75); PLATELET COUNT 225 x10^3/uL (130-400); RED BLOOD COUNT 4.88 x10^6/uL (4.38-5.82); RED CELL DISTRIBUTION WIDTH 19.6 % (9.4-14.8)
[2020-05-02 05:57] LABS: ANION GAP 8 mmol/L (5-15); CALCIUM 8.8 mg/dL (8.5-10.1); CHLORIDE 97 mmol/L (98-107)
[2020-05-02 05:59] LABS: CREATININE 0.95 mg/dL (0.7-1.3)
[2020-05-02 06:00] LABS: MD NO
--- NOTE | 2020-05-02 06:59 | NUR ---
Report to An doan.
--- NOTE | 2020-05-02 08:11 | NUR ---
RECEIVED REPORT FROM ANIKA EDEN RN. PT RESTING IN BED. STEPHANIE. SPOKE W/ [facility] RESIDENT IN REGARDS TO PT'S NA+ LEVEL, K+ CURRENTLY AT 6.0 AND PT'S HX DM AND NO ORDERS FOR INSULIN. PER [facility] RESIDENT WILL DISCUSS W/ ATTENDING.
[2020-05-02] MEDS ORDERED: LINAGLIPTIN 5 MG TAB PO SCH (09:00)
[2020-05-02] MEDS: APIXABAN 5 MG TABLET PO SCH ×2 (09:16→21:00)
[2020-05-02] MEDS: metFORMIN 500 MG TABLET PO SCH ×2 (09:17→16:07)
--- NOTE | 2020-05-02 09:21 | NUR ---
PT RESTING IN BED. NADN. VSS. AWARE OF POC FOR ADMIT FOR OBSERVATION OF O2 SATS AND MONITORING THORACENTESIS SITE WELL FLUID CULTURE.
--- NOTE | 2020-05-02 09:30 | NUR ---
[facility] DR. DAVIS AT BEDSIDE TO DISCUSS POC W/ PT. PER DR. DAVIS MONITOR K+. NO TREATMENT AT THIS TIME.
--- NOTE | 2020-05-02 12:28 | NUR ---
PT RESTING ON BED. NADN. RIOJAS. PROVIDED W LUNCH TRAY. PT SATING 93-95% RA. WILL CONTINUE TO MONITOR.
[2020-05-02 12:44] LABS: ALBUMIN 2.8 g/dL (3.4-5.0); ANION GAP 8 mmol/L (5-15); CALCIUM 8.5 mg/dL (8.5-10.1); CHLORIDE 94 mmol/L (98-107)
[2020-05-02] MEDS: INSULIN LISPRO 100 UNITS/ML, PEN SQ-INSULIN SCH ×2 (16:07→21:01)
--- NOTE | 2020-05-02 16:15 | NUR ---
PT RESTING IN BED. NADN. MURRAY PROVIDED W/ DINNER TRAY.
[2020-05-02 18:47] VITALS: BP 136/95
[2020-05-02] MEDS ORDERED: GLUCAGON 1 MG IM PRN (19:00)
[2020-05-02] MEDS ORDERED: DEXTROSE 50%, 50ML SYRINGE IVPush PRN (19:00)
[2020-05-02] MEDS ORDERED: DEXTROSE 4 GM TAB.CHEW PO PRN (19:00)
[2020-05-02] MEDS: SODIUM CHLORIDE FLUSH 10ML SYR IVF SCH (21:24)
[2020-05-03 01:48] VITALS: BP 96/62
[2020-05-03 05:05] LABS: ANION GAP 6 mmol/L (5-15); CALCIUM 8.6 mg/dL (8.5-10.1); CHLORIDE 97 mmol/L (98-107); CREATININE 0.83 mg/dL (0.7-1.3)
[2020-05-03 05:11] LABS: POTASSIUM,URINE RANDOM 12 mmol/L; SODIUM,URINE RANDOM 15 mmol/L
[2020-05-03 05:13] LABS: CHLORIDE,URINE RANDOM < 10 mmol/L
[2020-05-03 06:59] VITALS: BP 138/85
[2020-05-03] MEDS: INSULIN LISPRO 100 UNITS/ML, PEN SQ-INSULIN SCH ×5 (07:00→19:33)
[2020-05-03] MEDS: APIXABAN 5 MG TABLET PO SCH ×2 (08:15→19:33)
[2020-05-03] MEDS: SODIUM CHLORIDE FLUSH 10ML SYR IVF SCH ×2 (09:00→19:25)
[2020-05-03 12:04] VITALS: BP 120/80
[2020-05-03 19:20] VITALS: BP 137/95
[2020-05-04 01:04] VITALS: BP 139/96
[2020-05-04 02:13] LABS: OSMOLALITY,URINE 307 mOsm/kg (500-850)
[2020-05-04 06:36] VITALS: BP 126/80
[2020-05-04 06:40] LABS: BASOPHILS % (AUTO) 1 % (0-1); EOSINOPHILS % (AUTO) 5 % (1-7); LYMPHOCYTES % (AUTO) 12 % (22-44); MEAN CORPUSCULAR HEMOGLOBIN 27.1 pg (27.5-34.5); MEAN CORPUSCULAR HGB CONC 32.1 g/dL (33.2-36.2); MONOCYTES % (AUTO) 13 % (2-9); NEUTROPHILS % (AUTO) 70 % (42-75); PLATELET COUNT 222 x10^3/uL (130-400); RED BLOOD COUNT 4.61 x10^6/uL (4.38-5.82)
[2020-05-04 06:41] LABS: MD NO
[2020-05-04 06:46] LABS: ANION GAP 7 mmol/L (5-15); CALCIUM 8.8 mg/dL (8.5-10.1); CHLORIDE 98 mmol/L (98-107)
[2020-05-04 06:55] LABS: CREATININE 0.75 mg/dL (0.7-1.3)
[2020-05-04] MEDS: INSULIN LISPRO 100 UNITS/ML, PEN SQ-INSULIN SCH ×3 (07:00→16:00)
[2020-05-04] MEDS: APIXABAN 5 MG TABLET PO SCH (08:15)
[2020-05-04] MEDS: SODIUM CHLORIDE FLUSH 10ML SYR IVF SCH (08:16)
[2020-05-04 12:10] VITALS: BP 128/72
[2020-05-05] MEDS ORDERED: SPIRONOLACTONE 25 MG TABLET PO SCH (09:00)
== END 2020-05-04 18:32 | disposition home or self-care (01) | DRG 187 ==
LOC: ED 21:00 → EDIP 21:48 → 4WST 05-02 18:44
PROVIDERS: ADMIT Family Medicine; ATTEND Family Medicine
PROC: 0W9B3ZZ Drainage of Left Pleural Cavity, Percutaneous Approach (ICD-10-PCS; principal; 2020-05-02)
DX: J90 Pleural effusion, not elsewhere classified (principal); E87.1 Hypo-osmolality and hyponatremia; I50.42 Chronic combined systolic (congestive) and diastolic (congestive) heart failure; I48.20 Chronic atrial fibrillation, unspecified; E11.9 Type 2 diabetes mellitus without complications; E78.5 Hyperlipidemia, unspecified; E87.5 Hyperkalemia; I11.0 Hypertensive heart disease with heart failure; I25.10 Atherosclerotic heart disease of native coronary artery without angina pectoris; I25.2 Old myocardial infarction; I35.0 Nonrheumatic aortic (valve) stenosis; J44.9 Chronic obstructive pulmonary disease, unspecified; Z85.46 Personal history of malignant neoplasm of prostate; Z86.011 Personal history of benign neoplasm of the brain; Z95.2 Presence of prosthetic heart valve
CPT/HCPCS: 32555; 36415; 71045; 71046; 71250; 80048; 80053; 82040; 82436; 82570; 82945; 82962; 83615; 83735; 83880; 83930; 83935; 83986; 84100; 84133; 84157; 84300; 84443; 84484; 85025; 87070; 87205; 88112; 88305; 88341; 88342; 89051; 93005; G0103; G0378; J1815; J3475; J7030

== ENCOUNTER → 2020-05-01 | Outpatient (CLI) | payer MEDICARE | END | disposition home or self-care (01) | LOC: CFH 13:24 | PROVIDERS: ATTEND Registered Nurse | DX: I08.1 Rheumatic disorders of both mitral and tricuspid valves (principal); E78.5 Hyperlipidemia, unspecified; I25.2 Old myocardial infarction; I10 Essential (primary) hypertension | CPT/HCPCS: 93306 ==

== ENCOUNTER 2020-05-20 10:00 | Emergency (ER) | payer MEDICARE ==
[~2020-05-20] VITALS: Ht 175.3 cm; Wt 72.6 kg
[2020-05-20 10:49] LABS: BASOPHILS % (AUTO) 1 % (0-1); EOSINOPHILS % (AUTO) 3 % (1-7); LYMPHOCYTES % (AUTO) 10 % (22-44); MEAN CORPUSCULAR HEMOGLOBIN 27.4 pg (27.5-34.5); MEAN CORPUSCULAR HGB CONC 32.1 g/dL (33.2-36.2); MEAN PLATELET VOLUME 8.3 fL (7.4-10.4); MONOCYTES % (AUTO) 10 % (2-9); NEUTROPHILS % (AUTO) 76 % (42-75); PLATELET COUNT 222 x10^3/uL (130-400); RED BLOOD COUNT 5.11 x10^6/uL (4.38-5.82); RED CELL DISTRIBUTION WIDTH 19.8 % (9.4-14.8)
[2020-05-20 10:50] LABS: ANION GAP 4 mmol/L (5-15); CALCIUM 9.4 mg/dL (8.5-10.1); CHLORIDE 103 mmol/L (98-107); CREATININE 1.21 mg/dL (0.7-1.3)
[2020-05-20 10:51] LABS: ALANINE AMINOTRANSFERASE 21 U/L (12-78); ALBUMIN 3.1 g/dL (3.4-5.0)
[2020-05-20 10:54] LABS: MD NO
[2020-05-20 10:55] LABS: ALKALINE PHOSPHATASE 197 U/L (45-117); BILIRUBIN,TOTAL 0.9 mg/dL (0.2-1.0); TOTAL PROTEIN 7.8 g/dL (6.4-8.2); TROPONIN I 0.055 ng/mL (0.000-0.045)
--- NOTE | 2020-05-20 11:10 | NUR ---
PT SENT HERE BY PCP TO '"DRAIN FLUID OFF OF LUNG" PT TO HAVE PPM PLACED ON MONDAY AND NEEDS "LUNG DRAINED" PRIOR TO PROCEDURE. PT IN NO RESP DISTRESS, RA 95% IN RM. PT DENIES CP/N/V. PT PLACED ON BLANKET WARMER AND PROVIDED BLANKETS FOR COMFORT. ERP IN TO EVAL PT, ORDERS RECIEVED. PT TO CARD MONITOR, BP, CONT PULSE OX
[2020-05-20] MEDS ORDERED: LIDOCAINE 1%, 10ML ONE (12:49)
--- NOTE | 2020-05-20 13:11 | NUR ---
PT TAKEN TO IR FOR THORO.
[2020-05-20 13:55] VITALS: BP 131/77
--- NOTE | 2020-05-20 13:56 | NUR ---
PT BACK FROM IR, PER TECH 2.3L REMOVED DURING THOROCENTESIS. VSS.
== END 2020-05-20 14:17 | disposition home or self-care (01) ==
LOC: ED 11:10
DX: J90 Pleural effusion, not elsewhere classified (principal); I50.9 Heart failure, unspecified; I11.0 Hypertensive heart disease with heart failure; I48.91 Unspecified atrial fibrillation; E11.9 Type 2 diabetes mellitus without complications; J44.9 Chronic obstructive pulmonary disease, unspecified; I25.10 Atherosclerotic heart disease of native coronary artery without angina pectoris; E78.5 Hyperlipidemia, unspecified; I25.2 Old myocardial infarction; Z85.46 Personal history of malignant neoplasm of prostate; Z87.891 Personal history of nicotine dependence; Z95.4 Presence of other heart-valve replacement
CPT/HCPCS: 32555; 36415; 71046; 80053; 83880; 84484; 85025; 93005; 99285; J3490

== ENCOUNTER 2020-05-21 08:00 | Outpatient (CLI) | payer MEDICARE | END 2020-05-21 23:59 | disposition home or self-care (01) | LOC: CACL 08:00 → EDSTATUS 13:00 → CACL 23:59 | PROVIDERS: ATTEND Internal Medicine Clinical Cardiac Electrophysiology | DX: Z20.828 Contact with and (suspected) exposure to other viral communicable diseases (principal); I48.91 Unspecified atrial fibrillation; I49.5 Sick sinus syndrome; I44.7 Left bundle-branch block, unspecified | CPT/HCPCS: 87635 ==

== ENCOUNTER → 2020-05-29 | Outpatient (CLI) | payer MEDICARE | END | disposition home or self-care (01) | LOC: CFH 10:41 | PROVIDERS: ATTEND Registered Nurse | DX: R60.9 Edema, unspecified (principal); R53.83 Other fatigue; I06.8 Other rheumatic aortic valve diseases; I42.9 Cardiomyopathy, unspecified; I48.0 Paroxysmal atrial fibrillation; I48.19 Other persistent atrial fibrillation; I50.23 Acute on chronic systolic (congestive) heart failure; I25.10 Atherosclerotic heart disease of native coronary artery without angina pectoris | CPT/HCPCS: 71046 ==

== ENCOUNTER → 2020-06-09 | Outpatient (CLI) | payer MEDICARE | END | disposition home or self-care (01) | LOC: CFH 11:38 | PROVIDERS: ATTEND Internal Medicine Cardiovascular Disease | DX: J90 Pleural effusion, not elsewhere classified (principal); J98.11 Atelectasis; I51.7 Cardiomegaly; I48.0 Paroxysmal atrial fibrillation | CPT/HCPCS: 71046 ==

== ENCOUNTER → 2020-08-18 | Outpatient (CLI) | payer MEDICARE ==
[~2020-08-18] MED LIST changes: +ACET325T26 PO; -ASPI-515 PO; +ASPI-963 PO; +LISI5TAB7 PO
== END | disposition home or self-care (01) ==
LOC: CFH 15:17
PROVIDERS: ATTEND Registered Nurse
DX: I08.8 Other rheumatic multiple valve diseases (principal); I48.91 Unspecified atrial fibrillation
CPT/HCPCS: 93306

== ENCOUNTER → 2021-01-04 | Outpatient (CLI) | payer MEDICARE | END | disposition home or self-care (01) | LOC: CVU 08:59 | PROVIDERS: ATTEND Internal Medicine Cardiovascular Disease | DX: Z01.810 Encounter for preprocedural cardiovascular examination (principal); I08.8 Other rheumatic multiple valve diseases; I65.29 Occlusion and stenosis of unspecified carotid artery; I25.2 Old myocardial infarction; E78.5 Hyperlipidemia, unspecified; I11.9 Hypertensive heart disease without heart failure; Z79.01 Long term (current) use of anticoagulants; Z95.4 Presence of other heart-valve replacement | CPT/HCPCS: 93306 ==